=== PATIENT | male | born 1950 | race Hispanic/Latino ===

== ENCOUNTER 2017-01-25 06:09 | Day surgery (SDC) | payer BC ==
[2017-01-17 13:29] VITALS: BMI 27.5
[2017-01-25] MEDS ORDERED: Phenylephrine 10 mg/ml Inj ONE (06:36)
[2017-01-25] MEDS ORDERED: Lidocaine 2% Inj (20ml) ONE (06:36)
[2017-01-25] MEDS ORDERED: Iodixanol 320 MG/ML 100 ML BOTTLE IV ONE (06:37)
[2017-01-25] MEDS ORDERED: Nitroglycerin 50mg in D5W 0 MG/0 ML BOTTLE IV ONE (06:37)
[2017-01-25] MEDS ORDERED: Iodixanol 320 MG/ML 200 ML BOTTLE IV ONE (06:37)
[2017-01-25] MEDS ORDERED: Iohexol 350mgl/ml 50 ML ONE (06:37)
[2017-01-25 07:01] LABS: INR 1.09 (0.93-1.08); PARTIAL THROMBOPLASTIN TIME 26.4 Seconds (23.7-30.8)
[2017-01-25] MEDS ORDERED: Midazolam 2 MG/2 ML VIAL ONE ×2 (07:04→07:44)
[2017-01-25 07:05] LABS: BASO # 0.02 K/mm3 (0.0-2.0); BASO % 0.4 % (0.0-3.0); EOS # 0.1 (0.0-0.7); GRAN # 3.07 (1.4-6.5); GRAN % 56.2 % (50.0-68.0); HEMATOCRIT 41.6 % (42.0-52.0); LYMPH # 1.8 (1.2-3.4); LYMPH % 33.3 % (22.0-35.0); MEAN CELL VOLUME 93.1 fl (80.0-105.0); MEAN CORPUSCULAR HEMOGLOBIN 33.3 pg (25.0-35.0); MEAN CORPUSCULAR HGB CONC 35.8 g/dl (31.0-37.0); MEAN PLATELET VOLUME 10.8 fl (7.0-11.0); MONO # 0.4 (0.1-0.6); MONO % 8.1 % (1.0-6.0); RED CELL DISTRIBUTION WIDTH 12.5 % (11.5-14.5); WHITE BLOOD COUNT 5.5 10^3/ul (4.5-11.0)
[2017-01-25 07:13] LABS: BLOOD UREA NITROGEN 11 mg/dL (7-21); CALCIUM 9.3 mg/dL (8.4-10.5); CARBON DIOXIDE 28 mmol/L (21-33); CHLORIDE 105 mmol/L (98-107); GFR AFRICAN-AMERICAN > 60; GLUCOSE,RANDOM 120 mg/dL (70-110); POTASSIUM 3.9 mmol/L (3.6-5.0); SODIUM 142 mmol/L (132-148)
[2017-01-25] MEDS ORDERED: Sodium Chloride 0.9% 1,000 ML IV SCH (08:30)
[2017-01-25 08:32] VITALS: TEMP 98.1
--- NOTE | 2017-01-25 11:40 | CARD ---
APPROVED REPORT EKG Measurement Heart [id number] SD [id number] <Conclusion> Sinus bradycardia Otherwise normal ECG
[2017-01-25 11:42] VITALS: RESP 16
[2017-01-25 11:51] VITALS: PULSE 59; O2SAT 97
[2017-01-25 12:18] VITALS: BP 135/75
--- NOTE | 2017-01-25 16:06 | CARDCATH ---
CARDIAC CATHETERIZATION PROCEDURE DATE: 01/25/2017 HISTORY: The patient is a 66-year-old male who presents with chest pain. A stress test was abnormal and because of this, cardiac catheterization was recommended. The patient suffers from hypertension. There is a hint of hypercholesterolemia in the past. Because of this, cardiac catheterization was recommended. PROCEDURE: Left heart catheterization with coronary arteriography and left ventriculogram. The right femoral artery was cannulated with a 6-[place]awk sheath. There were no complications. The findings on catheterization revealed a right dominant circulation. The RCA was found to be unremarkable. The left main artery was unremarkable. The LAD and diagonal vessels revealed intimal irregularities without significant stenoses. There is a 50% stenosis in the proximal portion of the diagonal one. The circumflex artery and obtuse marginal branches were free of significant disease. LV function was visualized in the ORTIZ projection. In the ORTIZ projection, wall motion was within normal limits with an estimated ejection fraction of 60%. Angio-Seal was used to close the femoral artery site. The patient tolerated the procedure well. In summary, the procedure revealed single-vessel CAD with a 50% stenosis in the proximal portion of the diagonal vessel. LV function is normal. Given these findings, the patient's treatment should be a daily aspirin. In addition, cardiac risk reduction program including strict cholesterol control would be appropriate. Harry Esteves MD
== END 2017-01-25 14:20 | disposition home or self-care (01) ==
LOC: CATH 06:09
PROVIDERS: ATTEND Internal Medicine Cardiovascular Disease
DX: I25.10 Atherosclerotic heart disease of native coronary artery without angina pectoris (principal); E78.00 Pure hypercholesterolemia, unspecified; I10 Essential (primary) hypertension; R07.89 Other chest pain; F41.9 Anxiety disorder, unspecified; R94.39 Abnormal result of other cardiovascular function study
CPT/HCPCS: 36415; 80048; 85025; 85610; 85730; 86850; 86900; 93005; 93458; 99152; 99153; C1760; C1769; C2629; J1644; J2250; J3010; J7040 ×2